=== PATIENT | male | born 1945 | race Caucasian/White ===

== ENCOUNTER 2022-08-01 08:45 | Emergency (ER) | payer MEDICARE, SELFPAY ==
[2022-08-01 08:54] VITALS: BP 170/51; PULSE 69; RESP 18; TEMP 36.8; O2SAT 98
--- NOTE | 2022-08-01 09:00 | DI.RAD_ITS ---
Exam(s) XR KNEE LT 3V AP,LAT,ZULEIMA EXAM: XR KNEE LT 3V AP,LAT,ZULEIMA CLINICAL HISTORY: pain. TECHNIQUE: 2D digital imaging was performed of the left knee. Three images were obtained. AP, late ral and PA tunnel views were obtained. COMPARISON: No exams were available for comparison FINDINGS: BONES: No acute fracture is present. No bony destructive lesion is seen. 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 JOINTS: The knee is normally aligned. There is a small joint effusion. SOFT TISSUE: Atherosclerosis is present. IMPRESSION: No acute abnormality. DATA REPOSITORY: RADIATION DOSE DELIVERED:
--- NOTE | 2022-08-01 09:05 | ED.GENADUL_ITS ---
Discharge Plan Disposition Patient Disposition: Home Condition: Stable Discharge Details Clinical Impression: Knee pain, left Primary Care Provider: Unknown,Unknown ED Provider: Guzman Acuna Home Meds and New Rx's Prescriptions: New prednisone 20 mg tablet 60 mg PO DAILY 4 Days Qty: 12 0RF Continued clopidogrel [Plavix] 75 mg Tablet 75 mg PO DAILY losartan 25 mg Tablet 25 mg PO DAILY hydrochlorothiazide 25 mg Tablet 25 mg PO DAILY Discharge Instructions Instructions: Knee Pain (ED) Additional Instructions: follow up as soon as you can with your orthopedist if you feel more ill, have severe worsening pain or fevers return to the emergency department Medical Decision Making 77 yo male comes in with 3 weeks of left knee pain. He denies any known trauma and no falls. He states it started one day out of the blue. He denies fevers, chills, rashes, warmth of the knee. Denies pain elsewhere. He localizes the pain to the anterior knee, has tenderness to the patella and medial as well as lateral joint lines, does have full rom though with pain. Has no leg swelling, no calf tenderness, intact distal sensation and pulses. No warmth and no significant swelling noted of the knee, no erthema. Suspect arthritis vs degenerative joint disease, will obtain xrays. pt stable, imaging unremarkable, will place in a hinged knee brace, he states he has an orthopedist [facility] [place] f/u with. He is on plavix so doesn't take ibuprofen, will provide short course of prednisone. Return precautions given Differential Diagnosis Differential Diagnosis: arthritis, strain, meniscus injury Imaging Data Radiologic Study: Attestation: I personally reviewed and interpreted this imaging study as follows: Imaging: X-Ray Radiologist's impression: no acute findings Sign Out No HPI General Mode of arrival: wheelchair . Date/Time Provider Initiated Documentation: 08/01/22 09:00 . Limitations to Documentation: no limitations . Information obtained by: patient . History of Present Illness 77 year old M presents to the emergency department with the chief complaint of left knee pain, described as moderate, Quality is described as aching, and is localized to the left and lower extremity. Patient reports no radiation. Patient started experiencing this week(s) (3) and it has been constant. Rest improves symptom(s), Movement worsens symptoms . Patient notes no other symptoms.; denies fever/chills. Patient did receive the following treatments prior to arrival, none Related Data Home Medications Medication Instructions Recorded Confirmed clopidogrel 75 mg tablet (Plavix) 75 mg PO DAILY 08/01/22 08/01/22 hydrochlorothiazide 25 mg tablet 25 mg PO DAILY 08/01/22 08/01/22 losartan 25 mg tablet 25 mg PO DAILY 08/01/22 08/01/22 prednisone 20 mg tablet 60 mg PO DAILY 4 days #12 tabs 08/01/22 Previous Rx's Medication Instructions Recorded prednisone 20 mg tablet 60 mg PO DAILY 4 days #12 tabs 08/01/22 Allergies Allergy/AdvReac Type Severity Reaction Status Date / Time pollen extracts Allergy Unverified 08/01/22 10:08 General Stated Complaint: Orthopedic ROSE: 4 Review of Systems All systems reviewed & are unremarkable except as noted in HPI and below Constitutional Constitutional: Denies chills, Denies fever(s) and Denies weakness Cardiovascular Cardiovascular: Denies chest pain and Denies dyspnea Respiratory Respiratory: Denies cough and Denies dyspnea Gastrointestinal Gastrointestinal: Denies abdominal pain, Denies nausea and Denies vomiting Integumentary/Breasts Skin/Breast: Denies rash Neurologic Neurologic: Denies weakness PFSH All Active Problems (Updated 08/01/22 @ 11:02 by Guzman Acuna MD) Knee pain, left (Acute) Social History Smoking/Tobacco Use Status: Never Smoking risk assessment performed?: Yes Alcohol Intake: never Drug use: Never Substance use type: does not use Do you feel safe at home: Yes Do you feel safe in your relationship?: Yes Exam Const General: no acute distress Orientation: alert HENMS Head: normal to inspection Ears: external ears normal General nose exam: external nose normal Mouth: moist mucous membranes Eyes General: appearance normal, both eyes and all related structures Neck Neck: normal visual inspection Resp Effort & Inspection: normal respiratory effort and able to speak in complete sentences Cardio Rate: regular rate Skin General skin exam: no rashes or lesions noted Neuro General: patient alert and patient oriented x3 Extrem General: capillary refill normal Psych Mental Status: mental status grossly normal Course Vital Signs Vital signs: Vital Signs Temperature 36.8 C 08/01/22 08:54 Pulse 69 08/01/22 08:54 Respiratory Rate 18 08/01/22 08:54 Blood Pressure 170/51 H 08/01/22 08:54 Pulse Oximetry 98 08/01/22 08:54 Temperature 36.8 C 08/01/22 08:54 Temperature Source Oral 08/01/22 08:54 Pulse 69 08/01/22 08:54 Respiratory Rate 18 08/01/22 08:54 Respiratory Effort Non-Labored 08/01/22 08:56 Blood Pressure 170/51 H 08/01/22 08:54 Blood Pressure Position Sitting 08/01/22 08:54 Pulse Oximetry 98 08/01/22 08:54 Oxygen Delivery Method Room Air 08/01/22 08:54 Oxygen Flow Rate 0 08/01/22 08:54 Pain Level 1 08/01/22 08:54
== END 2022-08-01 11:08 | disposition home or self-care (01) ==
PROVIDERS: Emergency Provider Emergency Medicine
DX: M25.562 Pain in left knee (principal)
CPT/HCPCS: 73562; 99283; 99284